=== PATIENT | female | born 2005 | race Two or more races ===

== ENCOUNTER 2024-03-23 02:11 | Emergency (ER) | payer BC, OTHER ==
[~2024-03-23] VITALS: Ht 167.6 cm; Wt 96.9 kg
[2024-03-23 03:07] VITALS: BP 112/69; PULSE 73; RESP 17; O2SAT 98
== END 2024-03-23 04:45 | disposition left against medical advice (07) ==
LOC: ER 02:11
DX: T78.49XA Other allergy, initial encounter (principal); Z53.21 Procedure and treatment not carried out due to patient leaving prior to being seen by health care provider; X58.XXXA Exposure to other specified factors, initial encounter